=== PATIENT | male | born 1970 | race Two or more races ===

== ENCOUNTER 2017-06-25 16:47 | Emergency (ER) | payer SELFPAY ==
[~2017-06-25] VITALS: Ht 170.2 cm; Wt 81.6 kg
[2017-06-25] MEDS ORDERED: Thiamine HCl 100mg/ml 2 ml Inj IM STA (16:59)
--- NOTE | 2017-06-25 17:00 | Emergency Room Report ---
History of Present Illness General Chief Complaint: Alcohol Intoxication Source: Patient, EMS Present Illness HPI Patient was picked up by EMS and from a liquor store. Presents AMS and unsteady on his feet. There is no evidence of any head trauma. There's evidence of alcohol ingestion although the patient denies this. Accucheck normal in field. Patient states he has had strokes in the past and walks with a cane. No fevers, cough, chest pain, dyspnea, headache, rashes, dysuria, change in bowels, vomiting. He denies pain. (Has other hospital name-bands. ? [place]) Allergies: Coded Allergies: No Known Allergies (Unverified , 06/25/17) Patient History Past Medical History: see triage record Social History: Reports: alcohol use Social History Narrative at [facility] Reviewed Nursing Documentation: PMH: Agreed, PSxH: Agreed Nursing Documentation-PMH Hx Hypertension: Yes Hx Diabetes: Yes Review of Systems All Other Systems: negative except mentioned in HPI Physical Exam Vital Signs Date Time Temp Pulse Resp B/P (MAP) Pulse Ox O2 Delivery O2 Flow Rate FiO2 06/25/17 16:40 98.2 76 16 148/80 98 Room Air Sp02 EP Interpretation: reviewed, normal General Appearance: well appearing, no apparent distress, GCS 15 Head: normocephalic Eyes: bilateral eye abnormal EOM - nystagmus, bilateral eye Scleral Injection ENT: moist mucus membranes Neck: supple Respiratory: lungs clear, normal breath sounds Cardiovascular #1: regular rate, rhythm Cardiovascular #2: 2+ radial (R) Gastrointestinal: normal inspection, normal bowel sounds, non tender, no mass, non-distended Musculoskeletal: back normal, gait/station normal, normal range of motion Neurologic: alert, responsive, dam operator III-XII nml as tested, motor strength/tone normal, DTRs symmetric, sensory intact Psychiatric: depressed affect Skin: normal inspection, warm/dry Medical Decision Making Diagnostic Impression: Primary Impression: Acute alcoholic intoxication Qualified Codes: F10.929 - Alcohol use, unspecified with intoxication, unspecified ER Course Patient with unsteady gait from in front of liquor store. DDx; alcohol intoxication, other drug ingestion, other causes of weakness amongst others. 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 Will observe patient and repeat evaluations. Patient still with some nystagmus but more alert. States he can't walk because of numbness on L side (alleges to have had stroke) . Seen using L side without difficulty. No sensory deficit and withdraws equally to pain. States unable to ambulate and needs to have cane. States needs to go to [facility] as he has possessions there and has a "place in the line". Sens intact all 4. Withdraws to pain. Communicating without slurred speech. Patient ambulatory without difficulty without aid of cane. Patient stable for outpatient observation and treatment. Last Vital Signs Date Time Temp Pulse Resp B/P (MAP) Pulse Ox O2 Delivery O2 Flow Rate FiO2 06/25/17 21:13 97.8 16 140/80 98 Room Air 06/25/17 16:40 76 Status: improved Disposition: HOME, SELF-CARE - [facility] Condition: Improved Omar Rao M.D. Jun 25, 2017 17:00
[2017-06-25 17:59] VITALS: BP 140/80
[2017-06-25 21:13] VITALS: BP 140/80
== END 2017-06-25 21:13 | disposition home or self-care (01) ==
LOC: EDBD 16:47 → EMR 18:52
DX: F10.929 Alcohol use, unspecified with intoxication, unspecified (principal); E11.9 Type 2 diabetes mellitus without complications; I10 Essential (primary) hypertension; Z86.73 Personal history of transient ischemic attack (TIA), and cerebral infarction without residual deficits
CPT/HCPCS: 96372; 99284